=== PATIENT | male | born 1985 | race Caucasian/White ===

== ENCOUNTER 2016-10-28 22:14 | Emergency (ER) | payer OTHER ==
--- NOTE | 2016-10-28 23:17 | ED CLINICAL REPORT ---
Clinical Report - Physicians/Mid Levels [facility] [address] [place] [address] 10/28/2016 22:25 Patient: MOUSTAPHA MEDINA Time Seen: 22:59. Arrived- By private vehicle. Historian- patient. HISTORY OF PRESENT ILLNESS Chief Complaint: EYE PAIN, REDNESS, IRRITATION and FOREIGN BODY. This started today, involves the right eye, is characterized as moderate in severity and has been constant and is still present. The patient sustained injury. This occurred at work. He probably has metallic foreign material in the right eye from grinding. Eye discomfort, redness and irritation. No photophobia or loss of vision. Patient denies injury to the head, face or neck. 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 was seen at [facility] and had FB removed, however pt states he still feels something in there, and "saw a dark spot in it"). REVIEW OF SYSTEMS No fever, sore throat or cough. PAST HISTORY See nurses notes. Negative. Prior eye injury. SURGERY HX: ( nose surg (after fracture) and cyst removed from jaw). He does not wear contact lenses. No history of diabetes mellitus or glaucoma. Tetanus immunization status is unknown. SOCIAL HISTORY Smoker- current status unknown. Alcohol use; consumes six beers a day. History of drug use: marijuana. ADDITIONAL NOTES The nursing notes have been reviewed. PHYSICAL EXAM Vital Signs: 10/28/2016 22:40 BP: 112/76. HR: 88. RR: 20. O2 saturation: 97%. Temp: 97.6 F. Pain level now: 4/10. Appearance: Alert. Oriented X3. (odor of the metabolic breakdown products of alcohol on his breath). Patient in mild distress. HEENT: Pharynx normal. Head appears normal to external inspection. Rt Eye: Conjunctival edema. Injected conjunctiva. Single conjunctival foreign body present (possible punctate fb on bulbar conjunctiva). No injury to the periorbital area. No stye present. No foreign body under the eyelid. Eyes: Visual acuity noted- see nurse's notes. Right eyelid everted for examination. Right cornea examined with fluorescein stain. Eyelids appear normal to inspection. Corneas appear normal to inspection. Pupils equal, round and reactive to light. Accommodation normal. EOMs intact. Periorbital areas appear normal to inspection. Right eye examined with slit lamp. Anterior chambers clear. Lt Eye: Left eye exam normal. Neck: Neck supple. Normal inspection. CVS: Normal heart rate and rhythm. Heart sounds normal. Respiratory: No respiratory distress. Breath sounds normal. Abdomen: Nontender. Skin: No rash. Extremities: Extremities negative. Neuro: Oriented X 3. Abnormal mood/affect. No motor deficit. PROGRESS AND PROCEDURES Course of Care: Pt refused Tdap per RN May have tiny retained conjunctival fb vs persistent reaction to recent corneal / conjunctival fb which was removed. No corneal abrasion or corneal fb seen now. Symptomatic treatment now with ophthalmology consult tomorrow. Patient/family counseled. Old ED records reviewed. Disposition: Discharged. Condition: stable and improved. CLINICAL IMPRESSION Conjunctival foreign body to right eye. Chronic substance abuse- tobacco (cigarettes), marijuana. INSTRUCTIONS Do not work for two days. Drink plenty of fluids. Do not smoke. Seek medical help to quit smoking. No alcohol until released. Warnings: Further evaluation is necessary in order to conduct further tests. It is very important to follow up with a physician. SEDATIVE MEDICATION: You were given sedative medication during your visit. Do not drive or operate dangerous machinery. CONTROLLED SUBSTANCE WARNINGS. TETANUS: You were given a tetanus shot during your visit. Make a note for future reference. GENERAL WARNINGS: Return or contact your physician immediately if your condition worsens or changes unexpectedly, if not improving as expected, or if other problems arise. Prescription Medications: Oxycodone/APAP 5 mg/325 mg: take 1-2 tablets orally every 8 hours as needed for pain. Dispense ten (10). No refill. OTC Medications: Acetaminophen (available over the counter): take according to label instructions. Motrin (available over the counter): take according to label instructions. Follow-up with: Barbie Mcdonald MD, Ophthalmology, [facility], [address] [place] [address] - [address], [place] [address]; Fransisco Shukla MD, Ophthalmology, , [facility], [address] [place] [address] Follow up tomorrow. (Electronically signed by Gonzalo Best DO 10/29/2016 10:14)
--- NOTE | 2016-10-28 23:17 | ED ORDER SUMMARY ---
..... Patient: MOUSTAPHA MEDINA OrderSheet [facility] VisitID: [id number] [place] [address] 31y, M Registration Date/Time: 10/28/2016 ORDER SHEET Weight: 88.4 kg (stated) Allergies: No Known Drug Allergy GENERAL ORDERS: MEDICATION ORDERS: Tdap IM 0.5 mL (NOW, per protocol) (23[facility]16 [facility] (Ack 23:17 DDean R.N.) (Cancelled: Patient [id number] DDean R.N.) Ibuprofen PO 600 mg (NOW) (23:16 10/28/2016 [facility]) (Ack 23:17 DDean R.N.) (23:24 DDean R.N.) Fluorescein Eye Strips 1 strips (NOW) (00:28 10/29/2016 DDean R.N. verbal order read back to [facility]) (0:31 DDean R.N.) Alcaine Eye Drops (Solution 0.5 %) 2 drops (bottle on chart for ERMD use) (00:29 10/29/2016 DDean R.N. verbal order read back to [facility]) (0:30 DDean R.N.) IV FLUIDS: ORDER SHEET NOTES: [Electronically signed by Diane Mayorga R.N. (00:36 10/29/2016)] [Electronically signed by Gonzalo Best DO (10:14 10/29/2016)] [Electronically locked/signed by Diane Mayorga R.N. (00:36 10/29/2016)]
--- NOTE | 2016-10-28 23:17 | ED NURSING NOTES ---
Clinical Report - Nurses [facility] [address] [place] [address] 10/28/2016 22:25 Patient: MOUSTAPHA MEDINA TRIAGE Triage time 2240. Acuity: LEVEL 4. Chief Complaint: REDNESS, PAIN and FOREIGN BODY TO RIGHT EYE. --23:00 Diane Mayorga R.N. 22:40 10/28/16. BP: 112/76. HR: 88. RR: 20. O2 saturation: 97% on room air. Temp: 97.6 F. Pain level now: 10/05. --23:00 Diane Mayorga R.N. VISUAL ACUITY: Visual acuity performed: left eye 20/20 minus two letters; right eye 20/30. --23:03 Diane Mayorga R.N. Weight: 88.4 kg stated. Height/Length: 69 inches Per Patient. BMI: 28.8. --22:59 Diane Mayorga R.N. Medications None. --22:59 Diane Mayorga R.N. Allergies No Known Drug Allergy. --22:59 Diane Mayorga R.N. History Arrived by private vehicle. Historian: patient. Accompanied by family. This started today. Onset. 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 was seen at [facility]/[place] and had FB removed, however pt states he still feels something in there, and "saw a dark spot in it"). He has had eye discomfort, eye irritation, photophobia and blurred vision. PAST MEDICAL HX: Negative. Immunizations: status is unknown. SURGERY HX: ( nose surg (after fracture) and cyst removed from jaw). SOCIAL HX: Heavy tobacco smoker (cigarette)- 1 pack per day. Alcohol use; consumes six beers a day. History of drug use: marijuana. --23:00 Diane Mayorga R.N. PROBLEMS: no known problems. Interventions ID band on patient. To treatment room. --23:00 Diane Mayorga R.N. PHYSICAL ASSESSMENT 22:40. Ambulatory to room. GENERAL / NEURO / PSYCH: Alert. Appears anxious. HEENT: No facial asymmetry noted. Photophobia present. RESPIRATORY: Respirations not labored. CVS: Capillary refill less than 2 seconds. SKIN: Skin is warm and dry. --23:01 Diane Mayorga R.N. NURSING PROGRESS NOTES 22:40. Head of bed elevated. Reassurance given. Patient identifiers checked. Call light placed in reach. Side rails up. Bed placed in lowest position. Patient ready for evaluation- chart flagged. --23:01 Diane Mayorga R.N. 22:40 10/28/2016 Alcaine (Proparacaine HCl) Eye Drops Opthalmic solution 2 drop given. Given in the right eye. --00:30 Diane Mayorga R.N. 23:00 10/28/2016 FLUORESCEIN Opth soln Opthalmic solution 1 Strip given. Given in the right eye. (given to HEMA for exaM). --00:31 Diane Mayorga R.N. 23:19 10/28/2016 Ibuprofen PO Tablets 600 mg given. Allergies verified and confirmed 5 rights. --23:24 Diane Mayorga R.N. 23:00. ( eye exam done by HEMA after prep with Alcaine drops and Yenni. strip. Pt used slit lamp, and griffin lamp to examine pt). --00:32 Diane Mayorga R.N. 23:20 Pt refused DPaT , KIERRAD notified. --00:33 Diane Mayorga R.N. DISPOSITION / DISCHARGE 23:20. Condition at departure: stable. No learning barriers present. Discharge instructions provided and reviewed with the patient and spouse. Reviewed medication(s) (percocet). Reviewed referral to an lead technical architect. Patient and spouse verbalized understanding. Written instructions provided in [place]. The patient was discharged home and accompanied by spouse. He left the Emergency Department ambulatory and via private vehicle. Spouse driving. --00:35 Diane Mayorga R.N. 23:15 10/28/16. BP: deferred. HR: deferred. RR: deferred. O2 saturation: deferred. Temp: deferred. Pain level now: 12/05. --00:35 Diane Mayorga R.N. Locked/Released at 10/29/2016 0:36 by Diane Mayorga R.N.
--- NOTE | 2016-10-28 23:17 | ED CLINICAL REPORT ---
Clinical Report - Physicians/Mid Levels [facility] [address] [place] [address] 10/28/2016 22:25 Patient: MOUSTAPHA MEDINA Time Seen: 22:59. Arrived- By private vehicle. Historian- patient. HISTORY OF PRESENT ILLNESS Chief Complaint: EYE PAIN, REDNESS, IRRITATION and FOREIGN BODY. This started today, involves the right eye, is characterized as moderate in severity and has been constant and is still present. The patient sustained injury. This occurred at work. He probably has metallic foreign material in the right eye from grinding. Eye discomfort, redness and irritation. No photophobia or loss of vision. Patient denies injury to the head, face or neck. 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 was seen at [facility]/[place] and had FB removed, however pt states he still feels something in there, and "saw a dark spot in it"). REVIEW OF SYSTEMS No fever, sore throat or cough. PAST HISTORY See nurses notes. Negative. Prior eye injury. SURGERY HX: ( nose surg (after fracture) and cyst removed from jaw). He does not wear contact lenses. No history of diabetes mellitus or glaucoma. Tetanus immunization status is unknown. SOCIAL HISTORY Smoker- current status unknown. Alcohol use; consumes six beers a day. History of drug use: marijuana. ADDITIONAL NOTES The nursing notes have been reviewed. PHYSICAL EXAM Vital Signs: 10/28/2016 22:40 BP: 112/76. HR: 88. RR: 20. O2 saturation: 97%. Temp: 97.6 F. Pain level now: 4/10. Appearance: Alert. Oriented X3. (odor of the metabolic breakdown products of alcohol on his breath). Patient in mild distress. HEENT: Pharynx normal. Head appears normal to external inspection. Rt Eye: Conjunctival edema. Injected conjunctiva. Single conjunctival foreign body present (possible punctate fb on bulbar conjunctiva). No injury to the periorbital area. No stye present. No foreign body under the eyelid. Eyes: Visual acuity noted- see nurse's notes. Right eyelid everted for examination. Right cornea examined with fluorescein stain. Eyelids appear normal to inspection. Corneas appear normal to inspection. Pupils equal, round and reactive to light. Accommodation normal. EOMs intact. Periorbital areas appear normal to inspection. Right eye examined with slit lamp. Anterior chambers clear. Lt Eye: Left eye exam normal. Neck: Neck supple. Normal inspection. CVS: Normal heart rate and rhythm. Heart sounds normal. Respiratory: No respiratory distress. Breath sounds normal. Abdomen: Nontender. Skin: No rash. Extremities: Extremities negative. Neuro: Oriented X 3. Abnormal mood/affect. No motor deficit. PROGRESS AND PROCEDURES Course of Care: Pt refused Tdap per RN May have tiny retained conjunctival fb vs persistent reaction to recent corneal / conjunctival fb which was removed. No corneal abrasion or corneal fb seen now. Symptomatic treatment now with ophthalmology consult tomorrow. Patient/family counseled. Old ED records reviewed. Disposition: Discharged. Condition: stable and improved. CLINICAL IMPRESSION Conjunctival foreign body to right eye. Chronic substance abuse- tobacco (cigarettes), marijuana. INSTRUCTIONS Do not work for two days. Drink plenty of fluids. Do not smoke. Seek medical help to quit smoking. No alcohol until released. Warnings: Further evaluation is necessary in order to conduct further tests. It is very important to follow up with a physician. SEDATIVE MEDICATION: You were given sedative medication during your visit. Do not drive or operate dangerous machinery. CONTROLLED SUBSTANCE WARNINGS. TETANUS: You were given a tetanus shot during your visit. Make a note for future reference. GENERAL WARNINGS: Return or contact your physician immediately if your condition worsens or changes unexpectedly, if not improving as expected, or if other problems arise. Prescription Medications: Oxycodone/APAP 5 mg/325 mg: take 1-2 tablets orally every 8 hours as needed for pain. Dispense ten (10). No refill. OTC Medications: Acetaminophen (available over the counter): take according to label instructions. Motrin (available over the counter): take according to label instructions. Follow-up with: Barbie Mcdonald MD, Ophthalmology, [facility], [address] [place] [address] - [address], [place] [address]; Fransisco Shukla MD, Ophthalmology, , [facility], [address] [place] [address] Follow up tomorrow. (Electronically signed by Gonzalo Best DO 10/29/2016 10:14)
--- NOTE | 2016-10-28 23:17 | ED NURSING NOTES ---
Clinical Report - Nurses [facility] [address] [place] [address] 10/28/2016 22:25 Patient: MOUSTAPHA MEDINA TRIAGE Triage time 2240. Acuity: LEVEL 4. Chief Complaint: REDNESS, PAIN and FOREIGN BODY TO RIGHT EYE. --23:00 Diane Mayorga R.N. 22:40 10/28/16. BP: 112/76. HR: 88. RR: 20. O2 saturation: 97% on room air. Temp: 97.6 F. Pain level now: 10/05. --23:00 Diane Mayorga R.N. VISUAL ACUITY: Visual acuity performed: left eye 20/20 minus two letters; right eye 20/30. --23:03 Diane Mayorga R.N. Weight: 88.4 kg stated. Height/Length: 69 inches Per Patient. BMI: 28.8. --22:59 Diane Mayorga R.N. Medications None. --22:59 Diane Mayorga R.N. Allergies No Known Drug Allergy. --22:59 Diane Mayorga R.N. History Arrived by private vehicle. Historian: patient. Accompanied by family. This started today. Onset. 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 was seen at [facility]/[place] and had FB removed, however pt states he still feels something in there, and "saw a dark spot in it"). He has had eye discomfort, eye irritation, photophobia and blurred vision. PAST MEDICAL HX: Negative. Immunizations: status is unknown. SURGERY HX: ( nose surg (after fracture) and cyst removed from jaw). SOCIAL HX: Heavy tobacco smoker (cigarette)- 1 pack per day. Alcohol use; consumes six beers a day. History of drug use: marijuana. --23:00 Diane Mayorga R.N. PROBLEMS: no known problems. Interventions ID band on patient. To treatment room. --23:00 Diane Mayorga R.N. PHYSICAL ASSESSMENT 22:40. Ambulatory to room. GENERAL / NEURO / PSYCH: Alert. Appears anxious. HEENT: No facial asymmetry noted. Photophobia present. RESPIRATORY: Respirations not labored. CVS: Capillary refill less than 2 seconds. SKIN: Skin is warm and dry. --23:01 Diane Mayorga R.N. NURSING PROGRESS NOTES 22:40. Head of bed elevated. Reassurance given. Patient identifiers checked. Call light placed in reach. Side rails up. Bed placed in lowest position. Patient ready for evaluation- chart flagged. --23:01 Diane Mayorga R.N. 22:40 10/28/2016 Alcaine (Proparacaine HCl) Eye Drops Opthalmic solution 2 drop given. Given in the right eye. --00:30 Diane Mayorga R.N. 23:00 10/28/2016 FLUORESCEIN Opth soln Opthalmic solution 1 Strip given. Given in the right eye. (given to HEMA for exaM). --00:31 Diane Mayorga R.N. 23:19 10/28/2016 Ibuprofen PO Tablets 600 mg given. Allergies verified and confirmed 5 rights. --23:24 Diane Mayorga R.N. 23:00. ( eye exam done by H[facility] after prep with Alcaine drops and Yenni. strip. Pt used slit lamp, and griffin lamp to examine pt). --00:32 Diane Mayorga R.N. 23:20 Pt refused DPaT , KIERRAD notified. --00:33 Diane Mayorga R.N. DISPOSITION / DISCHARGE 23:20. Condition at departure: stable. No learning barriers present. Discharge instructions provided and reviewed with the patient and spouse. Reviewed medication(s) (percocet). Reviewed referral to an slot attendant. Patient and spouse verbalized understanding. Written instructions provided in [place]. The patient was discharged home and accompanied by spouse. He left the Emergency Department ambulatory and via private vehicle. Spouse driving. --00:35 Diane Mayorga R.N. 23:15 10/28/16. BP: deferred. HR: deferred. RR: deferred. O2 saturation: deferred. Temp: deferred. Pain level now: 12/05. --00:35 Diane Mayorga R.N. Locked/Released at 10/29/2016 0:36 by Diane Mayorga R.N.
--- NOTE | 2016-10-28 23:17 | ED ORDER SUMMARY ---
..... Patient: MOUSTAPHA MEDINA OrderSheet [facility] VisitID: [id number] [place] [address] 31y, M Registration Date/Time: 10/28/2016 ORDER SHEET Weight: 88.4 kg (stated) Allergies: No Known Drug Allergy GENERAL ORDERS: MEDICATION ORDERS: Tdap IM 0.5 mL (NOW, per protocol) (23:16 [facility] (Ack 23:17 DDean R.N.) (Cancelled: Patient [id number] DDean R.N.) Ibuprofen PO 600 mg (NOW) (23:16 10/28/2016 [facility]) (Ack 23:17 DDean R.N.) (23:24 DDean R.N.) Fluorescein Eye Strips 1 strips (NOW) (00:28 10/29/2016 DDean R.N. verbal order read back to [facility]) (0:31 DDean R.N.) Alcaine Eye Drops (Solution 0.5 %) 2 drops (bottle on chart for ERMD use) (00:29 10/29/2016 DDean R.N. verbal order read back to [facility]) (0:30 DDean R.N.) IV FLUIDS: ORDER SHEET NOTES: [Electronically signed by Diane Mayorga R.N. (00:36 10/29/2016)] [Electronically signed by Gonzalo Best DO (10:14 10/29/2016)] [Electronically locked/signed by Diane Mayorga R.N. (00:36 10/29/2016)]
--- NOTE | 2016-10-29 10:14 | ED MED RECONCILIATION SUMMARY ---
Patient: MOUSTAPHA MEDINA Medication Reconciliation Report [facility] VisitID: [id number] [address] [address] 31y, M Registration Date/Time: 10/28/2016 Weight: 88.4 kg Height/Length: 69 in. BMI: 28.8 ALLERGIES: No Known Drug Allergy The patient's Home Medications are listed below: NONE. The source(s) of the original Home Medication information: Not obtained. The following Medications were given to the patient in the Emergency Department: Ibuprofen [PO] PO 600 mg, administered: 10/28/2016 11:19:00 PM Alcaine [Eye Drops] Eye Drops 2 drop, administered: 10/28/2016 10:40:00 PM FLUORESCEIN [EYE STRIPS] Opth soln 1 Strip, administered: 10/28/2016 11:00:00 PM The following Medications were prescribed to the patient: Acetaminophen (available over the counter): take according to label instructions. -- Gonzalo Best DO Motrin (available over the counter): take according to label instructions. -- Gonzalo Best DO Oxycodone/APAP 5 mg/325 mg: take 1-2 tablets orally every 8 hours as needed for pain. Dispense ten (10). No refill. -- Gonzalo Best DO
--- NOTE | 2016-10-29 10:14 | ED MAR SUMMARY ---
..... Medication Administration Record [facility] [address] [place] [address] [place] [address] Patient: MOUSTAPHA MEDINA Visit ID: [id number] 31y, M Weight: 88.4 kg Height/Length: 69 in BMI: 28.8 ALLERGIES: No Known Drug Allergy Given 22:40 10/28/2016 Diane Mayorga R.N. Medication Administered: ALCAINE [EYE DROPS] (PROPARACAINE HCL), Dose: 2 drop Opthalmic solution Eye Drops. Medication Ordered: Alcaine Eye Drops (Solution 0.5 %) 2 drops (bottle on chart for ERMD use). Given 23:00 10/28/2016 Diane Mayorga R.N. Medication Administered: FLUORESCEIN [EYE STRIPS], Dose: 1 Strip Opthalmic solution Opth soln. Medication Ordered: Fluorescein Eye Strips 1 strips (NOW). Given 23:19 10/28/2016 Diane Mayorga R.N. Medication Administered: IBUPROFEN [PO], Dose: 600 mg Tablets PO. Medication Ordered: Ibuprofen PO 600 mg (NOW).
--- NOTE | 2016-10-29 10:14 | ED MED RECONCILIATION SUMMARY ---
Patient: MOUSTAPHA MEDINA Medication Reconciliation Report [facility] VisitID: [id number] [place] [address] 31y, M Registration Date/Time: 10/28/2016 Weight: 88.4 kg Height/Length: 69 in. BMI: 28.8 ALLERGIES: No Known Drug Allergy The patient's Home Medications are listed below: NONE. The source(s) of the original Home Medication information: Not obtained. The following Medications were given to the patient in the Emergency Department: Ibuprofen [PO] PO 600 mg, administered: 10/28/2016 11:19:00 PM Alcaine [Eye Drops] Eye Drops 2 drop, administered: 10/28/2016 10:40:00 PM FLUORESCEIN [EYE STRIPS] Opth soln 1 Strip, administered: 10/28/2016 11:00:00 PM The following Medications were prescribed to the patient: Acetaminophen (available over the counter): take according to label instructions. -- Gonzalo Best DO Motrin (available over the counter): take according to label instructions. -- Gonzalo Best DO Oxycodone/APAP 5 mg/325 mg: take 1-2 tablets orally every 8 hours as needed for pain. Dispense ten (10). No refill. -- Gonzalo Best DO
--- NOTE | 2016-10-29 10:14 | ED MAR SUMMARY ---
..... Medication Administration Record [facility] [address] [place] [address] Patient: MOUSTAPHA MEDINA Visit ID: [id number] 31y, M Weight: 88.4 kg Height/Length: 69 in BMI: 28.8 ALLERGIES: No Known Drug Allergy Given 22:40 10/28/2016 Diane Mayorga R.N. Medication Administered: ALCAINE [EYE DROPS] (PROPARACAINE HCL), Dose: 2 drop Opthalmic solution Eye Drops. Medication Ordered: Alcaine Eye Drops (Solution 0.5 %) 2 drops (bottle on chart for ERMD use). Given 23:00 10/28/2016 Diane Mayorga R.N. Medication Administered: FLUORESCEIN [EYE STRIPS], Dose: 1 Strip Opthalmic solution Opth soln. Medication Ordered: Fluorescein Eye Strips 1 strips (NOW). Given 23:19 10/28/2016 Diane Mayorga R.N. Medication Administered: IBUPROFEN [PO], Dose: 600 mg Tablets PO. Medication Ordered: Ibuprofen PO 600 mg (NOW).
--- NOTE | 2016-10-29 10:14 | ED DISCHARGE INSTRUCTIONS ---
Patient: MOUSTAPHA MEDINA General Instructions [facility] VisitID: [id number] [place] [address] 31y, M Registration Date/Time: 10/28/2016 Conjunctival foreign body to right eye. Chronic substance abuse- tobacco (cigarettes), marijuana. INSTRUCTIONS Do not work for two days. Drink plenty of fluids. Do not smoke. Seek medical help to quit smoking. No alcohol until released. Warnings: Further evaluation is necessary in order to conduct further tests. It is very important to follow up with a physician. SEDATIVE MEDICATION: You were given sedative medication during your visit. Do not drive or operate dangerous machinery. CONTROLLED SUBSTANCE WARNINGS. TETANUS: You were given a tetanus shot during your visit. Make a note for future reference. GENERAL WARNINGS: Return or contact your physician immediately if your condition worsens or changes unexpectedly, if not improving as expected, or if other problems arise. Prescription Medications: Oxycodone/APAP 5 mg/325 mg: take 1-2 tablets orally every 8 hours as needed for pain. Dispense ten (10). No refill. OTC Medications: Acetaminophen (available over the counter): take according to label instructions. Motrin (available over the counter): take according to label instructions. Follow-up with: Barbie Mcdonald MD, Ophthalmology, [facility], [address] [place] [address] - [address], [place] [address]; Fransisco Shukla MD, Ophthalmology, , [facility], [address] [place] [address] Follow up tomorrow. ADDITIONAL INFORMATION Particle In The Eye [Conjunctival F.B., Resolved] The pain in your eye is from a bit of dust or dirt or other small particle that got into your eye. The exam today shows that there is no more particle there. Any discomfort you still have should go away during the next 24 hours. Home Care: Apply a cool compress (towel soaked in cool water) to the eye that hurts. Do this 3-4 times a day. It will help to reduce redness and swelling. You may use decongestant eye drops (such as Visine) to reduce irritation and redness, unless another medicine was prescribed. You may use acetaminophen (Tylenol) or ibuprofen (Motrin, Advil) to control pain, unless another pain medicine was prescribed. [ NOTE: If you have chronic liver or kidney disease or ever had a stomach ulcer or GI bleeding, talk with your doctor before using these medicines.] Follow Up with your doctor or this facility as directed, or if your symptoms do not improve within two days. Get Prompt Medical Attention if any of the following occur: Increased swelling of the eyelid Increased pain or redness in the eye Drainage from the eye Redness in the skin around the eye Marijuana Abuse Marijuana is the most widely used illegal drug in the [place]. It is called by various names such as pot, weed, blunts, grass, reefer, ganja, hash, hashish. It is usually smoked but can be mixed with foods or brewed as a tea. It is sometimes sold with PCP (Antwan Dust) or amphetamine mixed in it. These drugs can cause other harmful side effects. Marijuana can cause the following effects: Changes in mood (stimulated, happy, drowsy, depressed, paranoid) Hallucinations Increased heart rate and blood pressure Increased appetite Time distortion, difficulty concentrating, impaired memory Lung damage (similar to cigarettes with chronic cough, wheezing, frequent colds and bronchitis) You can become psychologically dependent on marijuana. That means the craving to use the drug is emotional or psychological rather than due to physical withdrawal. Is Marijuana Running Your Life? Here are some of the signs: Relying on marijuana to feel good, forget problems, deal with stress or to relax Wanting to be alone most of the time or only with others who use drugs Losing interest in things that used to be important Changes in school or job performance or attendance Spending a lot of time thinking about how to get marijuana Stealing or selling your things so you can buy marijuana Unable to stop using even though you may want to quit Increasing anxiety, anger,or depression Sleeping too much, changes in eating habits (weight loss or gain) Needing to use more to get the same effect Home Care Once you have become addicted to any drug, quitting is hard to do. Most people find they can't quit without help. So, dont try to do this alone. Talk to someone you trust who can support you. Seek professional help. Avoid people and places where drugs are used. That only increases the temptation to use. Follow Up with your doctor or as advised by our staff. For more information or a referral to a treatment center in your area, contact: Your local mental health center or the National Alcohol and Substance Abuse Information Center (463)-147-4109 www.addictioncareDineroMail.Mixbook National [place] on Alcoholism and Drug Dependence 334-477-YGVY www.ncadd.org Marijuana Anonymous 030-724-7200 www.marijuana-anonymous.org Get Prompt Medical Attention if any of the following occur: You feel extreme depression, fear, anxiety, or anger toward yourself or others You feel out of control You feel that you may try to harm yourself or another How To Quit Smoking Smoking is one of the hardest habits to break. About half of all those who have ever smoked have been able to quit, and most of those (about 70%) who still smoke want to quit. Here are some of the best ways to stop smoking. Keep Trying: It takes most smokers about 8 tries before they are finally able to fully quit. So, the more often you try and fail, the better your chance of quitting the next time! So, don't give up! Go Cold [place]: Most ex-smokers quit cold turkey. Trying to cut back gradually doesn't seem to work as well, perhaps because it continues the smoking habit. Also, it is possible to fool yourself by inhaling more while smoking fewer cigarettes. This results in the same amount of nicotine in your body! Get Support: Support programs can make an important difference, especially for the heavy smoker. These groups offer lectures, methods to change your behavior and peer support. Call the free national Quitline for more information. 886-ZQOD-RCA (058-726-8534). Low-cost or free programs are offered by many hospitals, local chapters of the [place] [employer] (993-010-9810) and the [place] Cancer Society (339-727-2444). Support at home is important too. Non-smokers can help by offering praise and encouragement. If the smoker fails to quit, encourage them to try again! [id number]-[id number]-[id number] Medicines: For those who can't quit on their own, Nicotine Replacement Therapy (NRT) may make quitting much easier. Certain aids such as the nicotine patch, gum and lozenge are available without a prescription. However, it is best to use these under the guidance of your doctor. The skin patch provides a steady supply of nicotine to the body. Nicotine gum and lozenge gives temporary bursts of low levels of nicotine. Both methods take the edge off the craving for cigarettes. WARNING: If you feel symptoms of nicotine overdose, such as nausea, vomiting, dizziness, weakness, or fast heartbeat, stop using these and see your doctor. Prescription Medicines: After evaluating your smoking patterns and prior attempts at quitting, your doctor may offer a prescription medicine such as bupropion (Zyban, Wellbutrin), varenicline (Chantix, Champix), a niocotine inhaler or nasal spray. Each has its unique advantage and side effects which your doctor can review with you. Health Benefits Of Quitting: The benefits of quitting start right away and keep improving the longer you go without smokin minutes: blood pressure and pulse return to normal 8 hours: oxygen levels return to normal 2 days: ability to smell and taste begins to improve as damaged nerves start to regrow 2-3 weeks: circulation and lung function improves 1-9 months: decreased cough, congestion and shortness of breath; less tired 1 year: risk of heart attack decreases by half 5 years: risk of lung cancer decreases by half; risk of stroke becomes the same as a non-smoker For information about how to quit smoking, visit the following links: National Cancer [place] , Clearing the Air, Quit Smoking Today - an online booklet. http://www.smokefree.gov/pubs/clearing_the_air.pdf Smokefree.gov http://smokefree.gov/ QuitNet http://www.quitnet.com/ Diphtheria Toxoid Adsorbed, Pertussis Vaccine, Acellular (Adsorbed), Tetanus Toxoid, Adsorbed Suspension for injection What is this medicine? DIPHTHERIA and TETANUS TOXOIDS; PERTUSSIS VACCINE (dif THEER ee and TET n us TOK soids; per TUS iss vak SEEN) is used to prevent diphtheria, tetanus, and pertussis infections. How should I use this medicine? This vaccine is for injection into a muscle. It is given by a health daycare assistant. A copy of Vaccine Information Statements will be given before each vaccination. Read this sheet carefully each time. The sheet may change frequently. Talk to your poultry processing supervisor regarding the use of this vaccine in children. While the DTP vaccine may be given to children ages 6 weeks to 7 years and the Tdap vaccine may be given to children at least 10 years old, precautions do apply. What side effects may I notice from receiving this medicine? Side effects that you should report to your doctor or health daycare assistant as soon as possible: allergic reactions like skin rash, itching or hives, swelling of the face, lips, or tongue breathing problems fever of 103 degrees F or more flu-like symptoms inconsolable crying infection pain, tingling, numbness in the hands or feet seizures swelling of arm or leg that was injected unusually weak or tired Side effects that usually do not require immediate medical attention (report these side effects to your doctor or health daycare assistant if they continue or are bothersome): fussy, irritable loss of appetite fever of 102 degrees F or less pain, tenderness, redness, swelling, or a 'knot' at site where injected vomiting What may interact with this medicine? immune globulin medicines that suppress your immune function like adalimumab, anakinra, infliximab medicines to treat cancer medicines that treat or prevent blood clots like warfarin, enoxaparin, and dalteparin steroid medicines like prednisone or cortisone What if I miss a dose? It is important not to miss your dose. Call your doctor or health daycare assistant if you are unable to keep an appointment. Where should I keep my medicine? This drug is given in a hospital or clinic and will not be stored at home. What should I tell my health care provider before I take this medicine? They need to know if you have any of these conditions: blood disorders like hemophilia fever or infection immune system problems neurologic disease seizures an unusual or allergic reaction to vaccines, thimerosal, latex, other medicines, foods, dyes, or preservatives or trying to get breast-feeding What should I watch for while using this medicine? See your health care provider for all shots of this vaccine as directed. To have protection from infection, you must have 3 shots of this vaccine plus boosters as needed. Tell your doctor right away if you have any serious or unusual side effects after getting this vaccine. Oxycodone Hydrochloride, Acetaminophen Oral tablet What is this medicine? ACETAMINOPHEN; OXYCODONE (a set a IDA leslee fen; ox i KOE done) is a pain reliever. It is used to treat mild to moderate pain. How should I use this medicine? Take this medicine by mouth with a full glass of water. Follow the directions on the prescription label. Take your medicine at regular intervals. Do not take your medicine more often than directed. Talk to your poultry processing supervisor regarding the use of this medicine in children. Special care may be needed. Patients over 65 years old may have a stronger reaction and need a smaller dose. What side effects may I notice from receiving this medicine? Side effects that you should report to your doctor or health daycare assistant as soon as possible: allergic reactions like skin rash, itching or hives, swelling of the face, lips, or tongue breathing difficulties, wheezing confusion light headedness or fainting spells severe stomach pain yellowing of the skin or the whites of the eyes Side effects that usually do not require medical attention (report to your doctor or health daycare assistant if they continue or are bothersome): dizziness drowsiness nausea vomiting What may interact with this medicine? alcohol antihistamines barbiturates like amobarbital, butalbital, butabarbital, methohexital, pentobarbital, phenobarbital, thiopental, and secobarbital benztropine drugs for bladder problems like solifenacin, trospium, oxybutynin, tolterodine, hyoscyamine, and methscopolamine drugs for breathing problems like ipratropium and tiotropium drugs for certain stomach or intestine problems like propantheline, homatropine methylbromide, glycopyrrolate, atropine, belladonna, and dicyclomine general anesthetics like etomidate, ketamine, nitrous oxide, propofol, desflurane, enflurane, halothane, isoflurane, and sevoflurane medicines for depression, anxiety, or psychotic disturbances medicines for sleep muscle relaxants naltrexone narcotic medicines (opiates) for pain phenothiazines like perphenazine, thioridazine, chlorpromazine, mesoridazine, fluphenazine, prochlorperazine, promazine, and trifluoperazine scopolamine tramadol trihexyphenidyl What if I miss a dose? If you miss a dose, take it as soon as you can. If it is almost time for your next dose, take only that dose. Do not take double or extra doses. Where should I keep my medicine? Keep out of the reach of children. This medicine can be abused. Keep your medicine in a safe place to protect it from theft. Do not share this medicine with anyone. Selling or giving away this medicine is dangerous and against the law. Store at room temperature between 20 and 25 degrees C (68 and 77 degrees F). Keep container tightly closed. Protect from light. This medicine may cause accidental overdose and if it is taken by other adults, children, or pets. Flush any unused medicine down the toilet to reduce the chance of harm. Do not use the medicine after the expiration date. What should I tell my health care provider before I take this medicine? They need to know if you have any of these conditions: brain tumor Crohn's disease, inflammatory bowel disease, or ulcerative colitis drink more than 3 alcohol containing drinks per day drug abuse or addiction head injury heart or circulation problems kidney disease or problems going to the bathroom liver disease lung disease, asthma, or breathing problems an unusual or allergic reaction to acetaminophen, oxycodone, other opioid analgesics, other medicines, foods, dyes, or preservatives or trying to get breast-feeding What should I watch for while using this medicine? Tell your doctor or health daycare assistant if your pain does not go away, if it gets worse, or if you have new or a different type of pain. You may develop tolerance to the medicine. Tolerance means that you will need a higher dose of the medication for pain relief. Tolerance is normal and is expected if you take this medicine for a long time. Do not suddenly stop taking your medicine because you may develop a severe reaction. Your body becomes used to the medicine. This does NOT mean you are addicted. Addiction is a behavior related to getting and using a drug for a non-medical reason. If you have pain, you have a medical reason to take pain medicine. Your doctor will tell you how much medicine to take. If your doctor wants you to stop the medicine, the dose will be slowly lowered over time to avoid any side effects. You may get drowsy or dizzy. Do not drive, use machinery, or do anything that needs mental alertness until you know how this medicine affects you. Do not stand or sit up quickly, especially if you are an older patient. This reduces the risk of dizzy or fainting spells. Alcohol may interfere with the effect of this medicine. Avoid alcoholic drinks. There are different types of narcotic medicines (opiates) for pain. If you take more than one type at the same time, you may have more side effects. Give your health care provider a list of all medicines you use. Your doctor will tell you how much medicine to take. Do not take more medicine than directed. Call emergency for help if you have problems breathing. The medicine will cause constipation. Try to have a bowel movement at least every 2 to 3 days. If you do not have a bowel movement for 3 days, call your doctor or health daycare assistant. Do not take Tylenol (acetaminophen) or medicines that have acetaminophen with this medicine. Too much acetaminophen can be very dangerous. Many nonprescription medicines contain acetaminophen. Always read the labels carefully to avoid taking more acetaminophen. Acetaminophen Oral tablet What is this medicine? ACETAMINOPHEN (a set a IDA leslee fen) is a pain reliever. It is used to treat mild pain and fever. How should I use this medicine? Take this medicine by mouth with a glass of water. Follow the directions on the package or prescription label. Take your medicine at regular intervals. Do not take your medicine more often than directed. Talk to your poultry processing supervisor regarding the use of this medicine in children. While this drug may be prescribed for children as young as 6 years of age for selected conditions, precautions do apply. What side effects may I notice from receiving this medicine? Side effects that you should report to your doctor or health daycare assistant as soon as possible: allergic reactions like skin rash, itching or hives, swelling of the face, lips, or tongue breathing problems fever or sore throat redness, blistering, peeling or loosening of the skin, including inside the mouth trouble passing urine or change in the amount of urine unusual bleeding or bruising unusually weak or tired yellowing of the eyes or skin Side effects that usually do not require medical attention (report to your doctor or health daycare assistant if they continue or are bothersome): headache nausea, stomach upset What may interact with this medicine? alcohol imatinib isoniazid other medicines with acetaminophen What if I miss a dose? If you miss a dose, take it as soon as you can. If it is almost time for your next dose, take only that dose. Do not take double or extra doses. Where should I keep my medicine? Keep out of reach of children. Store at room temperature between 20 and 25 degrees C (68 and 77 degrees F). Protect from moisture and heat. Throw away any unused medicine after the expiration date. What should I tell my health care provider before I take this medicine? They need to know if you have any of these conditions: if you frequently drink alcohol containing drinks liver disease an unusual or allergic reaction to acetaminophen, other medicines, foods, dyes or preservatives or trying to get breast-feeding What should I watch for while using this medicine? Tell your doctor or health daycare assistant if the pain lasts more than 10 days (5 days for children), if it gets worse, or if there is a new or different kind of pain. Also, check with your doctor if a fever lasts for more than 3 days. Do not take other medicines that contain acetaminophen with this medicine. Always read labels carefully. If you have questions, ask your doctor or pharmacist. If you take too much acetaminophen get medical help right away. Too much acetaminophen can be very dangerous and cause liver damage. Even if you do not have symptoms, it is important to get help right away. Ibuprofen Oral tablet What is this medicine? IBUPROFEN (eye BYOO proe fen) is a non-steroidal anti-inflammatory drug (NSAID). It is used for dental pain, fever, headaches or migraines, osteoarthritis, rheumatoid arthritis, or painful monthly periods. It can also relieve minor aches and pains caused by a cold, flu, or sore throat. How should I use this medicine? Take this medicine by mouth with a glass of water. Follow the directions on the prescription label. Take this medicine with food if your stomach gets upset. Try to not lie down for at least 10 minutes after you take the medicine. Take your medicine at regular intervals. Do not take your medicine more often than directed. A special MedGuide will be given to you by the pharmacist with each prescription and refill. Be sure to read this information carefully each time. Talk to your poultry processing supervisor regarding the use of this medicine in children. Special care may be needed. What side effects may I notice from receiving this medicine? Side effects that you should report to your doctor or health daycare assistant as soon as possible: allergic reactions like skin rash, itching or hives, swelling of the face, lips, or tongue black or bloody stools, blood in the urine or in vomit breathing problems changes in vision chest pain general ill feeling or flu-like symptoms nausea or vomiting redness, blistering, peeling or loosening of the skin, including inside the mouth slurred speech or weakness on one side of the body stomach pain unexplained weight gain or swelling unusually weak or tired yellowing of eyes or skin Side effects that usually do not require medical attention (report to your doctor or health daycare assistant if they continue or are bothersome): constipation or diarrhea dizziness gas or heartburn stomach upset What may interact with this medicine? Do not take this medicine with any of the following medications: cidofovir ketorolac methotrexate pemetrexed This medicine may also interact with the following medications: alcohol aspirin diuretics lithium other drugs for inflammation like prednisone warfarin What if I miss a dose? If you miss a dose, take it as soon as you can. If it is almost time for your next dose, take only that dose. Do not take double or extra doses. Where should I keep my medicine? Keep out of the reach of children. Store at room temperature between 15 and 30 degrees C (59 and 86 degrees F). Keep container tightly closed. Throw away any unused medicine after the expiration date. What should I tell my health care provider before I take this medicine? They need to know if you have any of these conditions: asthma cigarette smoker drink more than 3 alcohol containing drinks a day heart disease or circulation problems such as heart failure or leg edema (fluid retention) high blood pressure kidney disease liver disease stomach bleeding or ulcers an unusual or allergic reaction to ibuprofen, aspirin, other NSAIDS, other medicines, foods, dyes, or preservatives or trying to get breast-feeding What should I watch for while using this medicine? Tell your doctor or healthcare professional if your symptoms do not start to get better or if they get worse. This medicine does not prevent heart attack or stroke. In fact, this medicine may increase the chance of a heart attack or stroke. The chance may increase with longer use of this medicine and in people who have heart disease. If you take aspirin to prevent heart attack or stroke, talk with your doctor or health daycare assistant. Do not take other medicines that contain aspirin, ibuprofen, or naproxen with this medicine. Side effects such as stomach upset, nausea, or ulcers may be more likely to occur. Many medicines available without a prescription should not be taken with this medicine. This medicine can cause ulcers and bleeding in the stomach and intestines at any time during treatment. Ulcers and bleeding can happen without warning symptoms and can cause . To reduce your risk, do not smoke cigarettes or drink alcohol while you are taking this medicine. You may get drowsy or dizzy. Do not drive, use machinery, or do anything that needs mental alertness until you know how this medicine affects you. Do not stand or sit up quickly, especially if you are an older patient. This reduces the risk of dizzy or fainting spells. This medicine can cause you to bleed more easily. Try to avoid damage to your teeth and gums when you brush or floss your teeth. You have been given the following additional information: Conjunctival Foreign Body, Resolved Marijuana Abuse Smoking Cessation Diphtheria Toxoid Adsorbed, Pertussis Vaccine, Acellular (Adsorbed), Tetanus Toxoid, Adsorbed Suspension for injection Oxycodone Hydrochloride, Acetaminophen Oral tablet Acetaminophen Oral tablet Ibuprofen Oral tablet Do not work for two days. (Electronically signed by Gonzalo Best DO 10/29/2016 10:14)
--- NOTE | 2016-10-29 10:14 | ED DISCHARGE INSTRUCTIONS ---
Patient: MOUSTAPHA MEDINA General Instructions [facility] VisitID: [id number] [place] [address] 31y, M Registration Date/Time: 10/28/2016 Conjunctival foreign body to right eye. Chronic substance abuse- tobacco (cigarettes), marijuana. INSTRUCTIONS Do not work for two days. Drink plenty of fluids. Do not smoke. Seek medical help to quit smoking. No alcohol until released. Warnings: Further evaluation is necessary in order to conduct further tests. It is very important to follow up with a physician. SEDATIVE MEDICATION: You were given sedative medication during your visit. Do not drive or operate dangerous machinery. CONTROLLED SUBSTANCE WARNINGS. TETANUS: You were given a tetanus shot during your visit. Make a note for future reference. GENERAL WARNINGS: Return or contact your physician immediately if your condition worsens or changes unexpectedly, if not improving as expected, or if other problems arise. Prescription Medications: Oxycodone/APAP 5 mg/325 mg: take 1-2 tablets orally every 8 hours as needed for pain. Dispense ten (10). No refill. OTC Medications: Acetaminophen (available over the counter): take according to label instructions. Motrin (available over the counter): take according to label instructions. Follow-up with: Barbie Mcdonald MD, Ophthalmology, [facility], [address] [place] [address] - [address], [place] [id number]; Fransisco Shukla MD, Ophthalmology, , [facility], [address] [place] [address] Follow up tomorrow. ADDITIONAL INFORMATION Particle In The Eye [Conjunctival F.B., Resolved] The pain in your eye is from a bit of dust or dirt or other small particle that got into your eye. The exam today shows that there is no more particle there. Any discomfort you still have should go away during the next 24 hours. Home Care: Apply a cool compress (towel soaked in cool water) to the eye that hurts. Do this 3-4 times a day. It will help to reduce redness and swelling. You may use decongestant eye drops (such as Visine) to reduce irritation and redness, unless another medicine was prescribed. You may use acetaminophen (Tylenol) or ibuprofen (Motrin, Advil) to control pain, unless another pain medicine was prescribed. [ NOTE: If you have chronic liver or kidney disease or ever had a stomach ulcer or GI bleeding, talk with your doctor before using these medicines.] Follow Up with your doctor or this facility as directed, or if your symptoms do not improve within two days. Get Prompt Medical Attention if any of the following occur: Increased swelling of the eyelid Increased pain or redness in the eye Drainage from the eye Redness in the skin around the eye Marijuana Abuse Marijuana is the most widely used illegal drug in the [place]. It is called by various names such as pot, weed, blunts, grass, reefer, ganja, hash, hashish. It is usually smoked but can be mixed with foods or brewed as a tea. It is sometimes sold with PCP (Antwan Dust) or amphetamine mixed in it. These drugs can cause other harmful side effects. Marijuana can cause the following effects: Changes in mood (stimulated, happy, drowsy, depressed, paranoid) Hallucinations Increased heart rate and blood pressure Increased appetite Time distortion, difficulty concentrating, impaired memory Lung damage (similar to cigarettes with chronic cough, wheezing, frequent colds and bronchitis) You can become psychologically dependent on marijuana. That means the craving to use the drug is emotional or psychological rather than due to physical withdrawal. Is Marijuana Running Your Life? Here are some of the signs: Relying on marijuana to feel good, forget problems, deal with stress or to relax Wanting to be alone most of the time or only with others who use drugs Losing interest in things that used to be important Changes in school or job performance or attendance Spending a lot of time thinking about how to get marijuana Stealing or selling your things so you can buy marijuana Unable to stop using even though you may want to quit Increasing anxiety, anger,or depression Sleeping too much, changes in eating habits (weight loss or gain) Needing to use more to get the same effect Home Care Once you have become addicted to any drug, quitting is hard to do. Most people find they can't quit without help. So, dont try to do this alone. Talk to someone you trust who can support you. Seek professional help. Avoid people and places where drugs are used. That only increases the temptation to use. Follow Up with your doctor or as advised by our staff. For more information or a referral to a treatment center in your area, contact: Your local mental health center or the National Alcohol and Substance Abuse Information Center (857)-816-5916 www.addictioncareANDalyze.Insider Pages National [place] on Alcoholism and Drug Dependence 690-954-NHUI www.ncadd.org Marijuana Anonymous 110-994-6133 www.marijuana-anonymous.org Get Prompt Medical Attention if any of the following occur: You feel extreme depression, fear, anxiety, or anger toward yourself or others You feel out of control You feel that you may try to harm yourself or another How To Quit Smoking Smoking is one of the hardest habits to break. About half of all those who have ever smoked have been able to quit, and most of those (about 70%) who still smoke want to quit. Here are some of the best ways to stop smoking. Keep Trying: It takes most smokers about 8 tries before they are finally able to fully quit. So, the more often you try and fail, the better your chance of quitting the next time! So, don't give up! Go Cold [place]: Most ex-smokers quit cold turkey. Trying to cut back gradually doesn't seem to work as well, perhaps because it continues the smoking habit. Also, it is possible to fool yourself by inhaling more while smoking fewer cigarettes. This results in the same amount of nicotine in your body! Get Support: Support programs can make an important difference, especially for the heavy smoker. These groups offer lectures, methods to change your behavior and peer support. Call the free national Quitline for more information. 478-UNOG-BMO (278-130-6680). Low-cost or free programs are offered by many hospitals, local chapters of the [place] [employer] (477-760-3273) and the [place] [employer] (021-603-0771). Support at home is important too. Non-smokers can help by offering praise and encouragement. If the smoker fails to quit, encourage them to try again! Knva-Afs-Uoeltsz Medicines: For those who can't quit on their own, Nicotine Replacement Therapy (NRT) may make quitting much easier. Certain aids such as the nicotine patch, gum and lozenge are available without a prescription. However, it is best to use these under the guidance of your doctor. The skin patch provides a steady supply of nicotine to the body. Nicotine gum and lozenge gives temporary bursts of low levels of nicotine. Both methods take the edge off the craving for cigarettes. WARNING: If you feel symptoms of nicotine overdose, such as nausea, vomiting, dizziness, weakness, or fast heartbeat, stop using these and see your doctor. Prescription Medicines: After evaluating your smoking patterns and prior attempts at quitting, your doctor may offer a prescription medicine such as bupropion (Zyban, Wellbutrin), varenicline (Chantix, Champix), a niocotine inhaler or nasal spray. Each has its unique advantage and side effects which your doctor can review with you. Health Benefits Of Quitting: The benefits of quitting start right away and keep improving the longer you go without smokin minutes: blood pressure and pulse return to normal 8 hours: oxygen levels return to normal 2 days: ability to smell and taste begins to improve as damaged nerves start to regrow 2-3 weeks: circulation and lung function improves 1-9 months: decreased cough, congestion and shortness of breath; less tired 1 year: risk of heart attack decreases by half 5 years: risk of lung cancer decreases by half; risk of stroke becomes the same as a non-smoker For information about how to quit smoking, visit the following links: National Cancer Floweree , Clearing the Air, Quit Smoking Today - an online booklet. http://www.smokefree.gov/pubs/clearing_the_air.pdf Smokefree.gov http://smokefree.gov/ QuitNet http://www.quitnet.com/ Diphtheria Toxoid Adsorbed, Pertussis Vaccine, Acellular (Adsorbed), Tetanus Toxoid, Adsorbed Suspension for injection What is this medicine? DIPHTHERIA and TETANUS TOXOIDS; PERTUSSIS VACCINE (dif THEER ee and TET n us TOK soids; per TUS iss vak SEEN) is used to prevent diphtheria, tetanus, and pertussis infections. How should I use this medicine? This vaccine is for injection into a muscle. It is given by a health child day care teacher. A copy of Vaccine Information Statements will be given before each vaccination. Read this sheet carefully each time. The sheet may change frequently. Talk to your goldbeater regarding the use of this vaccine in children. While the DTP vaccine may be given to children ages 6 weeks to 7 years and the Tdap vaccine may be given to children at least 10 years old, precautions do apply. What side effects may I notice from receiving this medicine? Side effects that you should report to your doctor or health child day care teacher as soon as possible: allergic reactions like skin rash, itching or hives, swelling of the face, lips, or tongue breathing problems fever of 103 degrees F or more flu-like symptoms inconsolable crying infection pain, tingling, numbness in the hands or feet seizures swelling of arm or leg that was injected unusually weak or tired Side effects that usually do not require immediate medical attention (report these side effects to your doctor or health child day care teacher if they continue or are bothersome): fussy, irritable loss of appetite fever of 102 degrees F or less pain, tenderness, redness, swelling, or a 'knot' at site where injected vomiting What may interact with this medicine? immune globulin medicines that suppress your immune function like adalimumab, anakinra, infliximab medicines to treat cancer medicines that treat or prevent blood clots like warfarin, enoxaparin, and dalteparin steroid medicines like prednisone or cortisone What if I miss a dose? It is important not to miss your dose. Call your doctor or health child day care teacher if you are unable to keep an appointment. Where should I keep my medicine? This drug is given in a hospital or clinic and will not be stored at home. What should I tell my health care provider before I take this medicine? They need to know if you have any of these conditions: blood disorders like hemophilia fever or infection immune system problems neurologic disease seizures an unusual or allergic reaction to vaccines, thimerosal, latex, other medicines, foods, dyes, or preservatives or trying to get breast-feeding What should I watch for while using this medicine? See your health care provider for all shots of this vaccine as directed. To have protection from infection, you must have 3 shots of this vaccine plus boosters as needed. Tell your doctor right away if you have any serious or unusual side effects after getting this vaccine. Oxycodone Hydrochloride, Acetaminophen Oral tablet What is this medicine? ACETAMINOPHEN; OXYCODONE (a set a IDA leslee fen; ox i KOE done) is a pain reliever. It is used to treat mild to moderate pain. How should I use this medicine? Take this medicine by mouth with a full glass of water. Follow the directions on the prescription label. Take your medicine at regular intervals. Do not take your medicine more often than directed. Talk to your goldbeater regarding the use of this medicine in children. Special care may be needed. Patients over 65 years old may have a stronger reaction and need a smaller dose. What side effects may I notice from receiving this medicine? Side effects that you should report to your doctor or health child day care teacher as soon as possible: allergic reactions like skin rash, itching or hives, swelling of the face, lips, or tongue breathing difficulties, wheezing confusion light headedness or fainting spells severe stomach pain yellowing of the skin or the whites of the eyes Side effects that usually do not require medical attention (report to your doctor or health child day care teacher if they continue or are bothersome): dizziness drowsiness nausea vomiting What may interact with this medicine? alcohol antihistamines barbiturates like amobarbital, butalbital, butabarbital, methohexital, pentobarbital, phenobarbital, thiopental, and secobarbital benztropine drugs for bladder problems like solifenacin, trospium, oxybutynin, tolterodine, hyoscyamine, and methscopolamine drugs for breathing problems like ipratropium and tiotropium drugs for certain stomach or intestine problems like propantheline, homatropine methylbromide, glycopyrrolate, atropine, belladonna, and dicyclomine general anesthetics like etomidate, ketamine, nitrous oxide, propofol, desflurane, enflurane, halothane, isoflurane, and sevoflurane medicines for depression, anxiety, or psychotic disturbances medicines for sleep muscle relaxants naltrexone narcotic medicines (opiates) for pain phenothiazines like perphenazine, thioridazine, chlorpromazine, mesoridazine, fluphenazine, prochlorperazine, promazine, and trifluoperazine scopolamine tramadol trihexyphenidyl What if I miss a dose? If you miss a dose, take it as soon as you can. If it is almost time for your next dose, take only that dose. Do not take double or extra doses. Where should I keep my medicine? Keep out of the reach of children. This medicine can be abused. Keep your medicine in a safe place to protect it from theft. Do not share this medicine with anyone. Selling or giving away this medicine is dangerous and against the law. Store at room temperature between 20 and 25 degrees C (68 and 77 degrees F). Keep container tightly closed. Protect from light. This medicine may cause accidental overdose and if it is taken by other adults, children, or pets. Flush any unused medicine down the toilet to reduce the chance of harm. Do not use the medicine after the expiration date. What should I tell my health care provider before I take this medicine? They need to know if you have any of these conditions: brain tumor Crohn's disease, inflammatory bowel disease, or ulcerative colitis drink more than 3 alcohol containing drinks per day drug abuse or addiction head injury heart or circulation problems kidney disease or problems going to the bathroom liver disease lung disease, asthma, or breathing problems an unusual or allergic reaction to acetaminophen, oxycodone, other opioid analgesics, other medicines, foods, dyes, or preservatives or trying to get breast-feeding What should I watch for while using this medicine? Tell your doctor or health child day care teacher if your pain does not go away, if it gets worse, or if you have new or a different type of pain. You may develop tolerance to the medicine. Tolerance means that you will need a higher dose of the medication for pain relief. Tolerance is normal and is expected if you take this medicine for a long time. Do not suddenly stop taking your medicine because you may develop a severe reaction. Your body becomes used to the medicine. This does NOT mean you are addicted. Addiction is a behavior related to getting and using a drug for a non-medical reason. If you have pain, you have a medical reason to take pain medicine. Your doctor will tell you how much medicine to take. If your doctor wants you to stop the medicine, the dose will be slowly lowered over time to avoid any side effects. You may get drowsy or dizzy. Do not drive, use machinery, or do anything that needs mental alertness until you know how this medicine affects you. Do not stand or sit up quickly, especially if you are an older patient. This reduces the risk of dizzy or fainting spells. Alcohol may interfere with the effect of this medicine. Avoid alcoholic drinks. There are different types of narcotic medicines (opiates) for pain. If you take more than one type at the same time, you may have more side effects. Give your health care provider a list of all medicines you use. Your doctor will tell you how much medicine to take. Do not take more medicine than directed. Call emergency for help if you have problems breathing. The medicine will cause constipation. Try to have a bowel movement at least every 2 to 3 days. If you do not have a bowel movement for 3 days, call your doctor or health child day care teacher. Do not take Tylenol (acetaminophen) or medicines that have acetaminophen with this medicine. Too much acetaminophen can be very dangerous. Many nonprescription medicines contain acetaminophen. Always read the labels carefully to avoid taking more acetaminophen. Acetaminophen Oral tablet What is this medicine? ACETAMINOPHEN (a set a IDA leslee fen) is a pain reliever. It is used to treat mild pain and fever. How should I use this medicine? Take this medicine by mouth with a glass of water. Follow the directions on the package or prescription label. Take your medicine at regular intervals. Do not take your medicine more often than directed. Talk to your goldbeater regarding the use of this medicine in children. While this drug may be prescribed for children as young as 6 years of age for selected conditions, precautions do apply. What side effects may I notice from receiving this medicine? Side effects that you should report to your doctor or health child day care teacher as soon as possible: allergic reactions like skin rash, itching or hives, swelling of the face, lips, or tongue breathing problems fever or sore throat redness, blistering, peeling or loosening of the skin, including inside the mouth trouble passing urine or change in the amount of urine unusual bleeding or bruising unusually weak or tired yellowing of the eyes or skin Side effects that usually do not require medical attention (report to your doctor or health child day care teacher if they continue or are bothersome): headache nausea, stomach upset What may interact with this medicine? alcohol imatinib isoniazid other medicines with acetaminophen What if I miss a dose? If you miss a dose, take it as soon as you can. If it is almost time for your next dose, take only that dose. Do not take double or extra doses. Where should I keep my medicine? Keep out of reach of children. Store at room temperature between 20 and 25 degrees C (68 and 77 degrees F). Protect from moisture and heat. Throw away any unused medicine after the expiration date. What should I tell my health care provider before I take this medicine? They need to know if you have any of these conditions: if you frequently drink alcohol containing drinks liver disease an unusual or allergic reaction to acetaminophen, other medicines, foods, dyes or preservatives or trying to get breast-feeding What should I watch for while using this medicine? Tell your doctor or health child day care teacher if the pain lasts more than 10 days (5 days for children), if it gets worse, or if there is a new or different kind of pain. Also, check with your doctor if a fever lasts for more than 3 days. Do not take other medicines that contain acetaminophen with this medicine. Always read labels carefully. If you have questions, ask your doctor or pharmacist. If you take too much acetaminophen get medical help right away. Too much acetaminophen can be very dangerous and cause liver damage. Even if you do not have symptoms, it is important to get help right away. Ibuprofen Oral tablet What is this medicine? IBUPROFEN (eye BYOO proe fen) is a non-steroidal anti-inflammatory drug (NSAID). It is used for dental pain, fever, headaches or migraines, osteoarthritis, rheumatoid arthritis, or painful monthly periods. It can also relieve minor aches and pains caused by a cold, flu, or sore throat. How should I use this medicine? Take this medicine by mouth with a glass of water. Follow the directions on the prescription label. Take this medicine with food if your stomach gets upset. Try to not lie down for at least 10 minutes after you take the medicine. Take your medicine at regular intervals. Do not take your medicine more often than directed. A special MedGuide will be given to you by the pharmacist with each prescription and refill. Be sure to read this information carefully each time. Talk to your goldbeater regarding the use of this medicine in children. Special care may be needed. What side effects may I notice from receiving this medicine? Side effects that you should report to your doctor or health child day care teacher as soon as possible: allergic reactions like skin rash, itching or hives, swelling of the face, lips, or tongue black or bloody stools, blood in the urine or in vomit breathing problems changes in vision chest pain general ill feeling or flu-like symptoms nausea or vomiting redness, blistering, peeling or loosening of the skin, including inside the mouth slurred speech or weakness on one side of the body stomach pain unexplained weight gain or swelling unusually weak or tired yellowing of eyes or skin Side effects that usually do not require medical attention (report to your doctor or health child day care teacher if they continue or are bothersome): constipation or diarrhea dizziness gas or heartburn stomach upset What may interact with this medicine? Do not take this medicine with any of the following medications: cidofovir ketorolac methotrexate pemetrexed This medicine may also interact with the following medications: alcohol aspirin diuretics lithium other drugs for inflammation like prednisone warfarin What if I miss a dose? If you miss a dose, take it as soon as you can. If it is almost time for your next dose, take only that dose. Do not take double or extra doses. Where should I keep my medicine? Keep out of the reach of children. Store at room temperature between 15 and 30 degrees C (59 and 86 degrees F). Keep container tightly closed. Throw away any unused medicine after the expiration date. What should I tell my health care provider before I take this medicine? They need to know if you have any of these conditions: asthma cigarette smoker drink more than 3 alcohol containing drinks a day heart disease or circulation problems such as heart failure or leg edema (fluid retention) high blood pressure kidney disease liver disease stomach bleeding or ulcers an unusual or allergic reaction to ibuprofen, aspirin, other NSAIDS, other medicines, foods, dyes, or preservatives or trying to get breast-feeding What should I watch for while using this medicine? Tell your doctor or healthcare professional if your symptoms do not start to get better or if they get worse. This medicine does not prevent heart attack or stroke. In fact, this medicine may increase the chance of a heart attack or stroke. The chance may increase with longer use of this medicine and in people who have heart disease. If you take aspirin to prevent heart attack or stroke, talk with your doctor or health child day care teacher. Do not take other medicines that contain aspirin, ibuprofen, or naproxen with this medicine. Side effects such as stomach upset, nausea, or ulcers may be more likely to occur. Many medicines available without a prescription should not be taken with this medicine. This medicine can cause ulcers and bleeding in the stomach and intestines at any time during treatment. Ulcers and bleeding can happen without warning symptoms and can cause . To reduce your risk, do not smoke cigarettes or drink alcohol while you are taking this medicine. You may get drowsy or dizzy. Do not drive, use machinery, or do anything that needs mental alertness until you know how this medicine affects you. Do not stand or sit up quickly, especially if you are an older patient. This reduces the risk of dizzy or fainting spells. This medicine can cause you to bleed more easily. Try to avoid damage to your teeth and gums when you brush or floss your teeth. You have been given the following additional information: Conjunctival Foreign Body, Resolved Marijuana Abuse Smoking Cessation Diphtheria Toxoid Adsorbed, Pertussis Vaccine, Acellular (Adsorbed), Tetanus Toxoid, Adsorbed Suspension for injection Oxycodone Hydrochloride, Acetaminophen Oral tablet Acetaminophen Oral tablet Ibuprofen Oral tablet Do not work for two days. (Electronically signed by Gonzalo Best DO 10/29/2016 10:14)
== END 2016-10-28 23:15 | disposition home or self-care (01) ==
LOC: ED SRH 22:14
DX: T15.11XA Foreign body in conjunctival sac, right eye, initial encounter (principal); F17.210 Nicotine dependence, cigarettes, uncomplicated; F12.10 Cannabis abuse, uncomplicated; W31.1XXA Contact with metalworking machines, initial encounter; Y93.89 Activity, other specified; Y92.69 Other specified industrial and construction area as the place of occurrence of the external cause; Y99.0 Civilian activity done for income or pay